=== PATIENT | female | born 1970 | race Caucasian/White ===

== ENCOUNTER → 2021-02-06 | Outpatient (CLI) | payer OTHER | LOC: KOH-I 11:08 | DX: R91.1 Solitary pulmonary nodule (principal) | CPT/HCPCS: 71046 ==

== ENCOUNTER → 2021-04-21 | Outpatient (CLI) | payer OTHER | LOC: KOH-I 10:30 | DX: F17.210 Nicotine dependence, cigarettes, uncomplicated (principal); R91.8 Other nonspecific abnormal finding of lung field | CPT/HCPCS: 71271 ==